=== PATIENT | female | born 1980 | race Hispanic/Latino ===

== ENCOUNTER 2018-03-07 06:18 | Day surgery (SDC) | payer BC ==
[~2018-03-07 06:18] MED LIST: Ringers Lactate 0 ML IV ONE
[2018-03-07] MEDS ORDERED: Ringers Lactate 1,000 ML IV ONE (06:47)
[2018-03-07] MEDS ORDERED: FENTANYL CITR 100 MCG/2 ML ONE (06:54)
[2018-03-07] MEDS ORDERED: PROPOFOL 200 MG/20 ML VIAL IV ONE (06:54)
[2018-03-07] MEDS ORDERED: MIDAZOLAM HCL 2 MG/2 ML INJ ONE (06:55)
[2018-03-07] MEDS ORDERED: LIDOCAINE 1% MPF 5 ML VIAL ONE (06:55)
[2018-03-07] MEDS ORDERED: ONDANSETRON HCL 40 MG/20 ML VIAL ONE (06:57)
[2018-03-07] MEDS ORDERED: NA CHLORIDE 0.9% 1,000 ML ONE (07:09)
[2018-03-07] MEDS: LIDOCAINE 1% W/EPI 1:100,000 MDV 50 ML VIAL ONE ×2 (07:18→07:44)
[2018-03-07] MEDS ORDERED: KETOROLAC 30 MG/ML INJ ONE (07:50)
[2018-03-07 08:17] VITALS: BP 101/55; TEMP 97.2; O2SAT 97
--- NOTE | 2018-03-07 17:15 | OP ---
Date of Procedure: 03/07/2018 Surgeon: Dulce Smith MD Postoperative Diagnoses: Heavy menstrual bleeding with irregular cycles, severe dysmenorrhea, and le ft ovarian cyst. Postoperative Diagnoses: Heavy menstrual bleeding with irregular cycles, severe dysmenorrhea, and le ft ovarian cyst. Procedures Performed: Hysteroscopy, dilation and curettage. Anesthesia: MAC plus paracervical block. Specimens: Endometrial curettings. Complications: No complications. Drains: None. Condition: Stable. Findings: Uterus slightly enlarged, anteflexed. Posterior wall of the uterus with an irregular rais ed endometrial area. Both tubal ostia well visualized. No other intracavitary lesions. Description Of Procedure: After informed consent was verified, patient was taken back to the OR, delta ronnell in a supine fashion on the operating table. After MAC was given, she was placed in a dorsal lith otomy position using Emiliano stirrups. Pelvic exam was performed. Uterus found to be anteflexed. Spe culum placed to expose the cervix. Anterior lip injected with 1% lidocaine mixed with 1:100,000 epin ephrine 10 cc at the 4 and 8 o'clock positions of the cervicovaginal junction, 5 cc each was injected for a paracervical block. Then, Betadine x3 was used for prep. Anterior lip was grasped with 2 All is clamps. Jean speculum used. Diagnostic hysteroscopy was performed with a SlimLine hysteroscope, 30-degree lens, and normal saline. After traversing the cervical canal under direct visualization, u terine cavity was entered. The posterior wall and the lower part of the uterine body had a thick ascencio sed slightly irregular area of the endometrium. No other intracavitary lesions were seen. Cavity em pty. Both tubal ostia were visualized, and the cavity had no distortion. The scope was pulled out. Endometrial curettings were performed targeting the area of the irregularity in the posterior lower part of the endometrial canal. There was optimal amount of tissue obtained. All this was handed off for permanent pathology. All the instruments were removed. Instrument, needle, and sponge counts w ere done and were correct at the end of the case. The patient was recovered from anesthesia and take n to Recovery in stable condition. She will follow up with me in 1 week. GERONIMO/LAUREN Voice ID: [id number] Report ID: [id number]
== END 2018-03-07 08:37 | disposition home or self-care (01) ==
LOC: OR 06:18
PROVIDERS: ATTEND Obstetrics & Gynecology
PROC: 0UJD8ZZ Inspection of Uterus and Cervix, Via Natural or Artificial Opening Endoscopic (ICD-10-PCS; 2018-03-07)
PROC: 0UDB7ZX Extraction of Endometrium, Via Natural or Artificial Opening, Diagnostic (ICD-10-PCS; principal; 2018-03-07 07:30)
DX: N94.6 Dysmenorrhea, unspecified (principal); N92.6 Irregular menstruation, unspecified; E78.5 Hyperlipidemia, unspecified; F41.9 Anxiety disorder, unspecified
CPT/HCPCS: 81025; 88305; J2250; J2405; J3010; J7030

== ENCOUNTER 2018-09-20 06:35 | Day surgery (SDC) | payer BC ==
[2018-09-18 12:08] LABS: Urine Appearance CLEAR; Urine Bilirubin NEGATIVE (NEG); Urine Blood 1+ (NEG); Urine Color YELLOW; Urine Glucose NEGATIVE (NEG); Urine Protein NEGATIVE (NEG); Urine Urobilinogen 0.2 mg/dL (0.2-1.0); Urine pH 5.5 (5.0-7.0)
[2018-09-18 12:09] LABS: Absolute Lymphocytes (CBC) 1.7 K/uL (0.7-4.9); Absolute Monocytes 0.3 K/uL (0.1-1.3); Absolute Neutrophil 3.6 K/uL (1.8-8.0); Basophils % 1.1 % (0-1.3); Eosinophils % 3.4 % (0-4.4); Hematocrit 39.3 % (36.0-45.0); Lymphocytes % 29.3 % (15.3-44.8); MPV 9.5 fL (7.6-11.3); Monocytes % 5.2 % (3.3-12.3); RBC Red Blood Cell Count 4.68 M/uL (3.86-4.86)
[2018-09-18 12:12] LABS: Urine Microscopic Reflex ORDER UMIC
[2018-09-18 12:19] LABS: Urine Bacteria <20 /HPF (<20); Urine Culture Reflex Order NOT NEEDED; Urine Mucus 2+ /HPF (NONE SEEN); Urine RBC <5 /HPF (NONE SEEN)
[2018-09-20] MEDS ORDERED: Ringers Lactate 1,000 ML IV ONE ×2 (07:22→10:22)
[2018-09-20] MEDS ORDERED: CEFAZOLIN/SWI 1gm 1 GM/10 ML SYR ONE (07:42)
[2018-09-20] MEDS ORDERED: PROPOFOL 200 MG/20 ML VIAL IV ONE (08:18)
[2018-09-20] MEDS ORDERED: MIDAZOLAM HCL 2 MG/2 ML INJ ONE (08:18)
[2018-09-20] MEDS ORDERED: FENTANYL CITR 250 MCG/5 ML ONE (08:18)
[2018-09-20] MEDS ORDERED: GLYCOPYRROLATE 0.2 MG/ML SYR ONE ×2 (08:18)
[2018-09-20] MEDS ORDERED: LIDOCAINE 2% MPF 5 ML VIAL ONE (08:18)
[2018-09-20] MEDS ORDERED: NEOSTIGMINE 1 MG/ML -5 ML SYRINGE ONE (08:18)
[2018-09-20] MEDS ORDERED: ONDANSETRON HCL 40 MG/20 ML VIAL ONE ×2 (08:18→10:01)
[2018-09-20] MEDS ORDERED: ROCURONIUM 50 MG/5 ML VIAL IV ONE (08:18)
[2018-09-20] MEDS ORDERED: EPHEDRINE SULF 50 MG/10 ML SYR ONE (08:19)
[2018-09-20] MEDS ORDERED: DEXAMETHASONE 10 MG/ML VIAL ONE (08:31)
[2018-09-20] MEDS ORDERED: KETOROLAC 30 MG/ML INJ ONE (09:56)
[2018-09-20] MEDS: MEPERIDINE HCL 50 MG/ML AMP ONE ×4 (10:38→10:55)
[2018-09-20 11:39] VITALS: BP 111/56; TEMP 98.4; O2SAT 96
[2018-09-20] MEDS ORDERED: HYDROCODONE/APAP 5/325 MG TAB ONE (12:02)
== END 2018-09-20 12:55 | disposition home or self-care (01) ==
LOC: OR 06:35
PROVIDERS: ATTEND Obstetrics & Gynecology
PROC: 0UT74ZZ Resection of Bilateral Fallopian Tubes, Percutaneous Endoscopic Approach (ICD-10-PCS; 2018-09-20)
PROC: 0UBF4ZZ Excision of Cul-de-sac, Percutaneous Endoscopic Approach (ICD-10-PCS; 2018-09-20)
PROC: 0DBP4ZZ Excision of Rectum, Percutaneous Endoscopic Approach (ICD-10-PCS; 2018-09-20)
PROC: 0TB64ZZ Excision of Right Ureter, Percutaneous Endoscopic Approach (ICD-10-PCS; 2018-09-20)
PROC: 0WQF4ZZ Repair Abdominal Wall, Percutaneous Endoscopic Approach (ICD-10-PCS; 2018-09-20)
PROC: 0U5B8ZZ Destruction of Endometrium, Via Natural or Artificial Opening Endoscopic (ICD-10-PCS; principal; 2018-09-20 07:30)
DX: N92.1 Excessive and frequent menstruation with irregular cycle (principal); N83.6 Hematosalpinx; K42.9 Umbilical hernia without obstruction or gangrene; N94.5 Secondary dysmenorrhea; N83.292 Other ovarian cyst, left side; I34.1 Nonrheumatic mitral (valve) prolapse; E78.5 Hyperlipidemia, unspecified; F33.1 Major depressive disorder, recurrent, moderate; Z83.3 Family history of diabetes mellitus; Z82.49 Family history of ischemic heart disease and other diseases of the circulatory system
CPT/HCPCS: 36415; 81003; 81015; 81025; 85025; 86850; 86900; 86901; 88302; 88305; J0690; J1100; J2175; J2250; J2405; J2704; J2710; J3010